=== PATIENT | male | born 1955 | race Caucasian/White ===

== ENCOUNTER 2023-05-18 08:15 | Outpatient (AMB) | payer OTHER, SELFPAY ==
--- NOTE | 2023-05-18 08:23 | A.OFFVIS_ITS ---
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 Patient reports on and off pain for two years. Hx of reflexology. Hx of PT with no relief. He states when his is driving in a golf cart and when going through the bumps he tends to cause him pain, also walking affects his pain. Allergies No Known Allergies Allergy (Verified 05/18/23 08:28) HPI HPI Comments History of Present Illness Details Chronic on/off back pain which usually is fixed by a chiropractor, told to be SI joint related. Gets massage once a month as well. 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 He continued to play golf no issues, then 2-3 months ago, noted more jabbing pain with walking or bouncing while seated on golf cart. Massage didn't help. Tried muscle relaxers and NSAIDs. Nowadays, if he takes those medications and topicals, he can play golf without much pain, up to 2 days in a row. Afraid to exacerbate the pain. Does not radiate to arms and legs or to chest or abdomen. It is focal despite severity. No associated numbness. No focal weakness. ROS left plantar fasciitis; left leg numbness depending on position but does not think associated with right sided pain. No bladder/bowel changes. Last pain in March. Not aware of family history. Denies medical past history. Sober 30 years. Cervical disc surgery few years ago, Dr. Xiao. [facility] Social History (Updated 05/18/23 @ 08:30 by Cristy Ling) Alcohol intake: never Patient Tobacco Use Status: Never used Tobacco Current occupational status: retired Review of Systems Const All systems reviewed & are unremarkable except as noted in HPI and below Physical Exam Vital Signs: BMI result Body Mass Index 33.9 Constitutional: Patient appears to be in no acute distress, well nourished and well developed. Patient was appropriately conversant and oriented. Good historian. MSK: No specific abnormalities found on inspection of the spine and all extremities. No pain with palpation over the cervical, thoracic lumbar area. No tenderness on SI joint or GT. Lumbar ROM was full. Cervical ROM was full. Strength is 5/5 in all muscle groups tested. No increased tone noted. Neurological: Neurologic examination of the upper and lower extremities was nonfocal with intact sensation, muscle stretch reflexes and without focal motor deficits . Byrd?s negative bilaterally. Gait is non-antalgic without loss of balance. Results Reviewed Results Reviewed: Ultrasound right left upper extremity- negative DVT Thoracic x-ray 03/27/2023-bridging osteophytes and decreased disc spaces I reviewed records from the following: Dr. Macias, PCP from [facility] Assessment & Plan Assessment & Plan (1) Myofascial pain: Code(s): M79.18 - Myalgia, other site (2) Thoracic back pain: Code(s): M54.6 - Pain in thoracic spine Qualifiers: Chronicity: acute Back pain laterality: right Qualified Code(s): M54.6 - Pain in thoracic spine Plan We continue to suspect pain was muscular in the quadratus lumborum. While this was inflamed, he probably could not have tolerated massage or exercise. But now that it has quiet down, I encouraged him to move, stretch and exercise again. Thoracic xray did report bridging osteophytes and disc space narrowing. He denies rheumatologic history personal or family. He denies any other joint pains. He also does not have signs of thoracic radiculopathy that wraps around chest or abdomen. If we were concerned, we could get an MRI thoracic. But since pain has subsided, we decided to wait it out and observe. He can continue with salonpas and muscle relaxer as needed. If pain recurs, especially when he is trying to stretch or exercise, then he will call our office. I will try to see him while he has pain. Assessment and plan discussed with patient, and patient was agreeable. All questions were answered thoroughly. Phoebe Vasquez MD, THIERRY Board Certified, [place] [employer] and Rehabilitation (ABPMR) Board Certified, [place] Board [employer] Electrodiagnostic Medicine (ABEM) Coding Level of Care Code New Pt Level 3 (01765) Diagnoses Myofascial pain M79.18 Acute right-sided thoracic back pain M54.6 Chronicity: acute Back pain laterality: right
[2023-05-18 08:24] VITALS: BMI 33.9
== END 2023-05-18 08:55 | disposition home or self-care (01) ==
PROVIDERS: Visit Provider Physical Medicine & Rehabilitation
DX: M79.18 Myalgia, other site (principal); M54.6 Pain in thoracic spine
CPT/HCPCS: 99203

== ENCOUNTER → 2023-05-18 08:15 | Outpatient (BNVA) | payer OTHER, SELFPAY | PROVIDERS: Visit Provider Physical Medicine & Rehabilitation ==

== ENCOUNTER 2024-02-12 10:29 | Outpatient (AMB) | payer OTHER, SELFPAY ==
--- NOTE | 2024-02-12 10:51 | MHC.PC.OV ---
Vital Signs 02/12/24 10:52 Height 5 ft 11.75 in Weight 248 lb 6 oz BMI 33.9 BP 140/84 H Blood Pressure Location Lt brachial Position Sitting Pulse 87 Pulse Source Pulse Oximeter Pulse Oximetry (%) 99 Oxygen Delivery Method Room Air Intake Visit Reasons: Establish Care Intake Note: Patient reports he may have a broken toe. Patient requests metabolic labs (vitamins and minerals) to see what he is lacking due to leg cramps. Firebrick Layer Required: No Accompanied by: Self / Same As Patient Allergies No Known Allergies Allergy (Verified 02/12/24 10:59) Tobacco use date assessed: 02/12/24 Fall risk assessment: 2 + Falls in past year Last assessed Fall Risk: 02/12/24 Dental Screening Dental Screen Date: 02/12/24 Did you have a dental visit in the last 12 months?: No Did you have a dental problem in the last 6 months where you did not have access to dental care?: No Was dental information given to patient?: Patient has dentist HPI HPI Comments History of Present Illness Details 68 year old male with a past medical history of low back pain presenting for follow up Chronic on/off back pain which usually is fixed by a chiropractor, told to be SI joint related. Gets massage once a month as well. 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 He continued to play golf no issues, then 2-3 months ago, noted more jabbing pain with walking or bouncing while seated on golf cart. Massage didn't help. Tried muscle relaxers and NSAIDs. Nowadays, if he takes those medications and topicals, he can play golf without much pain, up to 2 days in a row. Afraid to exacerbate the pain. Does not radiate to arms and legs or to chest or abdomen. It is focal despite severity. No associated numbness. No focal weakness. ROS left plantar fasciitis; left leg numbness depending on position but does not think associated with right sided pain. No bladder/bowel changes. Not aware of family history. Denies medical past history. Sober 30 years. Cervical disc surgery few years ago, Dr. Xiao. ROS see HPI PHYSICAL EXAM: GENERAL: Alert and oriented x 3. NAD EYES: EOMI. Anicteric. HENT: Moist mucous membranes. No scleral icterus. No cervical lymphadenopathy. LUNGS: Clear to auscultation bilaterally. CARDIOVASCULAR: Regular rate and rhythm. ABDOMEN: Soft, non-tender +bs EXTREMITIES: No edema. Non-tender. SKIN: No rashes or lesions. Warm. NEUROLOGIC: No focal neurological deficits. CN II-XII grossly intact PSYCHIATRIC: Cooperative. Appropriate mood and affect [facility] Medical History (Updated 02/12/24 @ 11:46 by Chel Melchor MD) Hernia Surgical History (Updated 02/12/24 @ 11:03 by Stacia Wayne [facility]) History of hernia repair History of ankle surgery History of neck surgery Family History (Updated 02/12/24 @ 11:04 by Stacia Wayne CMA) Mother High blood cholesterol Father Cancer Social History (Updated 02/12/24 @ 11:02 by Stacia Wayne CMA) Household Members: None Housing: Condominium Alcohol intake: never Patient Tobacco Use Status: Never used Tobacco Tobacco use type: Cigarette Cigarette Packs Per Day: 1 Years Smoked: 20 e-Cigarette/Vaping Use: Never Used service: No Current occupational status: retired Current occupational exposures/hazards: No Cognitive needs: No Hearing needs: No Vision needs: No Questionnaire PHQ-9 Over the last 2 weeks, how often have you been bothered by any of the following problems? 1. Little interest or pleasure in doing things: not at all 2. Feeling down, depressed, or hopeless: not at all 3. Trouble falling or staying asleep, or sleeping too much: several days 4. Feeling tired or having little energy: several days 5. Poor appetite or overeating: several days 6. Feeling bad about yourself - or that you are a failure or have let yourself or your family down: not at all 7. Trouble concentrating on things, such as reading the newspaper or watching television: several days 8. Moving or speaking so slowly that other people could have noticed. Or the opposite - being so fidgety or restless that you have been moving around a lot more than usual: several days 9. Thoughts that you would be better off or of hurting yourself in some way: several days Total score: 6 Depression Screening Interpretation: Positive Depression Screening Follow-up: Existing condition Depression Screening Done: Yes 42810 - PHQ-9 Billing: Yes Source: Developed by Drs. Keith Jorgensen, Amadou Grissom and colleagues, with an educational elizabet from [employer]. Thrive Questionnaire Date Thrive assessed: 02/12/24 I am a: Patient What is your living situation today?: I have a steady place to live Within the past 12 months, did the food you bought not last and you didn't have the money to get more?: Never true Within the past 12 months, did you worry whether your food would run out before you got money to buy more?: Never true Do you have trouble paying for medicines?: No Do you have trouble getting transportation to medical appointments?: No Do you have trouble paying your heating and electricity bill?: No Do you have trouble taking care of your child, family member or friend?: No Do you have trouble with day-to-day activities such as bathing, preparing meals, shopping, managing finances, etc.?: No Are you currently unemployed and looking for a job?: No Are you interested in more education?: No Please select the resources that you would like help with: None Currently or been in a relationship where the following occur: No concerns reported THRIVE Score: 0 AUDIT C Alcohol Use Questionnaire (AUDIT-C) 1. How often do you have a drink containing alcohol?: Never 3. How often do you have six or more drinks on one occasion?: Never Total Score: 0 LORENA-7 AMB Questionnaire LORENA-7 Date LORENA - 7 assessed: 02/12/24 Feeling nervous, anxious, or on edge: 1 = Several days Not being able to stop or control worryin = Not at all Worrying too much about different things: 0 = Not at all Trouble relaxin = Several days Being so restless that it is hard to sit still: 0 = Not at all Becoming easily annoyed or irritable: 1 = Several days Feeling afraid as if something awful might happen: 1 = Several days Total LORENA-7 score (0-4 normal; 5-9 mild; 10-14 moderate; 15-21 severe): 4 Source: Developed by Adelina Black Kurt Kroenke and colleagues, with an educational elizabet from [employer]. LORENA-7 Assessment Billing LORENA-7 Assessment Tool: LORENA-7 Assessment 46740 Physical exam (Primary Care) Vital Signs: Last Vital Signs Pulse 87 02/12/24 10:52 BP 140/84 H 02/12/24 10:52 Pulse Ox 99 02/12/24 10:52 Oxygen Delivery Method Room Air 02/12/24 10:52 BMI result Body Mass Index 33.9 Tobacco/Smoking Status: Tobacco use Status Tobacco use date assessed 02/12/24 02/12/24 11:04 Patient Tobacco Use Status Never used Tobacco 02/12/24 11:04 Tobacco use type Cigarette 02/12/24 11:04 e-Cigarette/Vaping Use Never Used 02/12/24 11:04 PHQ-9: PHQ-9 Score PHQ-9: Total score 6 02/26/24 21:23 Depression Screening Interpretation: Positive Depression Screening Follow-up: Existing condition Thrive Assessment: Date of Thrive Assessment Date Thrive assessed 02/12/24 02/12/24 11:06 Currently or been in a relationship where the following occur: No concerns reported Assessment and Plan Assessment & Plan (1) Muscle cramp: Code(s): R25.2 - Cramp and spasm (2) Weight gain: Code(s): R63.5 - Abnormal weight gain (3) Screening for hyperlipidemia: Code(s): Z13.220 - Encounter for screening for lipoid disorders (4) Screening for metabolic disorder: Code(s): Z13.228 - Encounter for screening for other metabolic disorders Plan 68 y/o male presenting to [facility] care. past medical, surgical, social and family history reviewed. chart updated. Orders: Orders TSH reflex Free T4 02/14/24 R25.2 - Cramp and spasm, M54.6 - Pain in thoracic spine, M79.18 - Myalgia, other site, R63.5 - Abnormal weight gain, Z13.220 - Encounter for screening for lipoid disorders, Z13.228 - Encounter for screening for other metabolic disorders Vitamin B12 and Folate 02/14/24 R25.2 - Cramp and spasm, M54.6 - Pain in thoracic spine, M79.18 - Myalgia, other site, R63.5 - Abnormal weight gain, Z13.220 - Encounter for screening for lipoid disorders, Z13.228 - Encounter for screening for other metabolic disorders Magnesium 02/14/24 R25.2 - Cramp and spasm, M54.6 - Pain in thoracic spine, M79.18 - Myalgia, other site, R63.5 - Abnormal weight gain, Z13.220 - Encounter for screening for lipoid disorders, Z13.228 - Encounter for screening for other metabolic disorders Lyme IgG/IgM w/reflex to WB 02/14/24 R25.2 - Cramp and spasm, M54.6 - Pain in thoracic spine, M79.18 - Myalgia, other site, R63.5 - Abnormal weight gain, Z13.220 - Encounter for screening for lipoid disorders, Z13.228 - Encounter for screening for other metabolic disorders Lactic Acid 02/12/24 R25.2 - Cramp and spasm, M54.6 - Pain in thoracic spine, M79.18 - Myalgia, other site, R63.5 - Abnormal weight gain, Z13.220 - Encounter for screening for lipoid disorders, Z13.228 - Encounter for screening for other metabolic disorders Complete Blood Count Auto Diff 02/14/24 R25.2 - Cramp and spasm, M54.6 - Pain in thoracic spine, M79.18 - Myalgia, other site, R63.5 - Abnormal weight gain, Z13.220 - Encounter for screening for lipoid disorders, Z13.228 - Encounter for screening for other metabolic disorders Comprehensive Met. Panel 02/14/24 R25.2 - Cramp and spasm, M54.6 - Pain in thoracic spine, M79.18 - Myalgia, other site, R63.5 - Abnormal weight gain, Z13.220 - Encounter for screening for lipoid disorders, Z13.228 - Encounter for screening for other metabolic disorders Lipid Panel 02/14/24 R25.2 - Cramp and spasm, M54.6 - Pain in thoracic spine, M79.18 - Myalgia, other site, R63.5 - Abnormal weight gain, Z13.220 - Encounter for screening for lipoid disorders, Z13.228 - Encounter for screening for other metabolic disorders Prostate Specific Antigen 02/14/24 R25.2 - Cramp and spasm, M54.6 - Pain in thoracic spine, M79.18 - Myalgia, other site, R63.5 - Abnormal weight gain, Z13.220 - Encounter for screening for lipoid disorders, Z13.228 - Encounter for screening for other metabolic disorders Vitamin D 1,25 dihydroxy 02/14/24 R25.2 - Cramp and spasm, M54.6 - Pain in thoracic spine, M79.18 - Myalgia, other site, R63.5 - Abnormal weight gain, Z13.220 - Encounter for screening for lipoid disorders, Z13.228 - Encounter for screening for other metabolic disorders CK, Total+Isoenzymes, Serum 02/12/24 R25.2 - Cramp and spasm, M54.6 - Pain in thoracic spine, M79.18 - Myalgia, other site, R63.5 - Abnormal weight gain, Z13.220 - Encounter for screening for lipoid disorders, Z13.228 - Encounter for screening for other metabolic disorders XR toe RT min 2V 02/12/24 M79.674 - Pain in right toe(s) Medications: New phentermine must administer 30 minutes before or 1-2 hours after breakfast [id number] [facility] [id number] Member [id number] 37.5 mg PO DAILY 30 caps 0RF Wegovy (semaglutide (weight loss)) administer weeks 1 through 4 of therapy 0.25 mg (0.5 mL) subcut QWEEK 2 mL 3RF NS diclofenac sodium 1% (Aleve (diclofenac)) apply to single knee, ankle, foot; for foot includes sole/toes/top of foot 4 grams topical QID 100 grams 3RF Coding Level of Care Code New Pt Level 5 (62746) Diagnoses Muscle cramp R25.2 Weight gain R63.5 Screening for hyperlipidemia Z13.220 Screening for metabolic disorder Z13.228 Additional Codes LORENA-7 Assessment Billing - LORENA-7 Assessment Tool: LORENA-7 Assessment [id number] ([id number])
[2024-02-12 10:52] VITALS: BP 140/84; PULSE 87; O2SAT 99; BMI 33.9
== END 2024-02-12 11:55 | disposition home or self-care (01) ==
PROVIDERS: PCP Internal Medicine; Visit Provider Internal Medicine
DX: R25.2 Cramp and spasm (principal); R63.5 Abnormal weight gain; Z13.220 Encounter for screening for lipoid disorders; Z13.228 Encounter for screening for other metabolic disorders
CPT/HCPCS: 99204

== ENCOUNTER 2024-02-14 07:50 | Outpatient (REF) | payer OTHER, SELFPAY ==
[2024-02-14 11:09] LABS: MANUAL DIFF FLAG NO
[2024-02-14 11:24] LABS: Basophils Absolute Auto 0.1 X10*3/uL (0.0-0.2); Basophils Percent Auto 0.6 % (0-2); Eosinophils Absolute Auto 0.2 X10*3/uL (0.0-0.4); Eosinophils Percent Auto 1.6 % (0-4); Hematocrit 43.7 % (42.0-52.0); Hemoglobin 14.7 g/dl (14.0-18.0); Imm Gran Abs Auto 0.03 X10*3/uL (0.00-0.03); Imm Gran Pct Auto 0.3 % (0.0-0.4); Lymphocytes Percent Auto 42.6 % (20-40); Mean Corpuscular HGB Conc 33.6 g/dl (31.0-36.0); Mean Corpuscular Hemoglobin 29.8 pg (27.0-33.0); Mean Corpuscular Volume 88.5 fL (80.0-98.0); Mean Platelet Volume 9.6 fL (9.4-12.4); Monocytes Absolute Auto 0.8 X10*3/uL (0.1-1.2); Monocytes Percent Auto 8.3 % (2-11); Neutrophils Absolute Auto 4.4 x10*3/uL (2.0-8.3); Neutrophils Percent Auto 46.6 % (45-73); Platelet Count 312 X10*3/uL (160-400); Red Blood Count 4.94 X10*6/uL (4.60-5.80); Red Cell Distribution Width 13.3 % (11.0-16.0); White Blood Count 9.4 X10*3/uL (4.8-10.8)
[2024-02-14 11:41] LABS: Alanine Aminotransferase 33 U/L (0-40); Albumin Level 3.9 g/dL (3.5-5.0); Alkaline Phosphatase 55 U/L (39-117); Anion Gap 11 (12-20); Aspartate Amino Transferase 24 U/L (5-37); Bilirubin Total 0.9 mg/dL (0.0-1.0); Blood Urea Nitrogen 16 mg/dL (9-16); Calcium 9.3 mg/dL (8.4-10.2); Carbon Dioxide 28 mmol/L (22-29); Chloride 107 mmol/L (96-108); Cholesterol 268 mg/dL (<200); Estimated Glomerular Filt Rate > 60; Glucose Random 89 mg/dL (60-115); HDL Cholesterol 53 mg/dL (>40); LDL Cholesterol Calculated 191 mg/dL (<100); Magnesium 2.3 mg/dL (1.6-2.6); Potassium 3.8 mmol/L (3.3-5.1); Sodium 142 mmol/L (135-145); Total Protein 7.3 g/dL (6.5-8.0); Triglycerides 122 mg/dL (<150)
[2024-02-14 11:56] LABS: TSH reflex Free T4 1.55 uIU/mL (0.32-4.0)
[2024-02-14 12:08] LABS: Folate 6.2 ng/mL (> or = 4.0); Prostate Specific Antigen 0.86 ng/mL (<0.05-4.0); Vitamin B12 371 pg/mL (200-900)
[2024-02-15 12:14] LABS: Lyme Abs Screen <0.90 index
[2024-02-18 15:33] LABS: VITAMIN D (1,25 OH) D3 56 pg/mL; Vit D (1,25-Dihydroxy) Total 56 pg/mL (18-72); Vitamin D (1,25 OH) D2 <8 pg/mL
== END 2024-02-14 07:51 | disposition home or self-care (01) ==
LOC: HO.WFDLDS 07:50
PROVIDERS: Visit Provider Internal Medicine
DX: R25.2 Cramp and spasm (principal); M54.6 Pain in thoracic spine; M79.18 Myalgia, other site; R63.5 Abnormal weight gain; Z13.220 Encounter for screening for lipoid disorders; Z13.228 Encounter for screening for other metabolic disorders
CPT/HCPCS: 36415; 80053; 80061; 82607; 82652; 82746; 83735; 84153; 84443; 85025; 86617; 86618